=== PATIENT | female | born 1975 | race Caucasian/White ===

== ENCOUNTER → 2018-02-02 13:18 | Outpatient (CLI) | payer BC, SELFPAY ==
--- NOTE | 2018-02-02 13:30 | RAD_ITS ---
STUDY: X-RAY - RIGHT KNEE REASON FOR EXAM: Female, 42 years old. Pain TECHNIQUE: 4 view(s) of the knee. COMPARISON: None. FINDINGS: There is no evidence of fracture or dislocation. There are no significant degenerative changes. There are no radiodense foreign bodies. RAD/Knee 4 or More Views IMPRESSION: Negative radiographs of the right knee Electronically Signed: Guy Riggs, at 20:48 EDT Tel , Service support ,
--- NOTE | 2018-02-02 13:30 | RAD_ITS ---
STUDY: X-RAY - LEFT KNEE REASON FOR EXAM: Female, 42 years old. Pain TECHNIQUE: 4 view(s) of the knee. COMPARISON: None. FINDINGS: There is no evidence of fracture or dislocation. There are no significant degenerative changes. There are no radiodense foreign bodies. RAD/Knee 4 or More Views IMPRESSION: Negative radiographs of the left knee. Electronically Signed: Guy Riggs, at 20:46 EDT Tel , Service support ,
== END ==
PROVIDERS: Family Provider Internal Medicine; PCP Internal Medicine; Visit Provider Physician Assistant
DX: M25.561 Pain in right knee (principal); M25.562 Pain in left knee
CPT/HCPCS: 73564

== ENCOUNTER → 2019-04-22 11:22 | Outpatient (CLI) | payer BC, SELFPAY ==
--- NOTE | 2019-04-22 11:25 | RAD_ITS ---
STUDY: X-RAY - CERVICAL SPINE REASON FOR EXAM: Female, 43 years old. Pain TECHNIQUE: 4 view(s) of the cervical spine were obtained. COMPARISON: None FINDINGS: Normal anterior atlantoaxial articulation. Normal odontoid process. Normal cervical lordosis. There is endplate spondylosis of C6 and C7. There is moderately severe narrowing of the C6-7 disc space. The soft tissue structures are unremarkable. RAD/Cerv Spine 2 or 3 Views IMPRESSION: Moderately severe narrowing of the C6-7 disc space. Endplate spondylosis of C6 and C7. There is no evidence of fracture or subluxation. Electronically Signed: Patrice Hickey MD at 17:44 EDT , Service support ,
== END ==
PROVIDERS: Family Provider Internal Medicine; PCP Internal Medicine; Referring Provider Internal Medicine; Visit Provider Internal Medicine
DX: M54.12 Radiculopathy, cervical region (principal)
CPT/HCPCS: 72040

== ENCOUNTER 2019-04-29 08:15 | Outpatient (RCR) | payer BC, SELFPAY ==
--- NOTE | 2019-04-29 11:40 | HP.PTEVAL_ITS ---
Patient's Visit Information EDWAR VALDIVIA is a 43 year old F referred to Physical Therapy by Barbie Ramos DO with a diagnosis of CERVICAL NECK PAIN,RADICULOPATHY,CERVICAL MUSCLE SPASMS. Date of Evaluation: 04/29/19 Physical Therapist: Salvatore Whitaker, PT, Cert MDT, OCS - Visit Plan Frequency: 1-2x /Week Duration: 4 Weeks Plan: PT INTERVENTIONS MANUAL THERAPY CERVICAL TRACTION /STM,US/CM/MHP,CERVICAL /POSTURL EX'S - Subjective Findings: This 43 y/o female presents to physical therapy with cervical pain . Patient has cervical pain for 9 years. Patient right cervical spine region. Aggravating factors flexion ,looking up and rotation/STM . Alleviating factors ice/aleve. Paient has seen chiropractors . Denies parathesai/tingling.C/O KIRBY . Symptoms worse in morning.Denies nausea/tinnutus. pateint had x-rays DDD C5-6. Patient pain affects job demands ADLS'. Patient goals to manage flare ups.Symptoms are intermittant. SOCIAL: 2. Children. VOCATION: nurse pedtric. - Pain Right Neck Pain Intensity (Out of 10): 2 Pain Intensity Range: 10 - Objective POSTURE: rounded shoulders. NEURO: denies parathesia/tingling ,reflexes C5-6-7 2/3. PALAPTION: unremrkable. AROM: flexion WFL. CERVICAL ROM: flexion min loss,extension min/mod loss pain,lateral flexion mod loss to right with pain,left min/mod loss,rotation min loss,retraction min loss. MMT: COLE 4/5 - Special Tests C/S Radiculapathy - Left Upper limb tension test: Negative C/S Radiculapathy - Right Upper limb tension test: Negative C/S Radiculapathy - Left Spurlings: Negative C/S Radiculapathy - Right Spurlings: Positive C/S Radiculapathy - Left Cervical distraction: Negative C/S Radiculapathy - Right Cervical distraction: Negative Sharp Steven: Negative Vertebral Artery Test: Negative Alar Ligament Test: Negative Cervical Sitting: Protrusion - Mechanical Response: No effect Cervical Sitting: Protrusion - Symptoms During Testing: Increases Cervical Sitting: Protrusion - Symptoms After Testing: No worse Cervical Sitting: Retraction - Mechanical Response: No effect Cervical Sitting: Retraction - Symptoms During Testing: No effect Cervical Sitting: Retraction - Symptoms After Testing: No worse Cervical Sitting: Retraction-Extension - Mechanical Response: No effect Cerv Sitting: Retraction-Extension - Symptoms During Testing: Increases Cerv Sitting: Retraction-Extension - Symptoms After Testing: No worse Cervical Sitting: Sidebend Right - Mechanical Response: No effect Cervical Sitting: Sidebend Right - Symptoms During Testing: Increases Cervical Sitting: Sidebend Right - Symptoms After Testing: No worse Cervical Sitting: Sidebend Left - Mechanical Response: No effect Cervical Sitting: Sidebend Left - Symptoms During Testing: No effect Cervical Sitting: Sidebend Left - Symptoms After Testing: No effect Cervical Sitting: Rotation Right - Mechanical Response: No effect Cervical Sitting: Rotation Right - Symptoms During Testing: Increases Cervical Sitting: Rotation Right - Symptoms After Testing: No worse Cervical Sitting: Rotation Left - Mechanical Response: No effect Cervical Sitting: Rotation Left - Symptoms During Testing: No effect Cervical Sitting: Rotation Left - Symptoms After Testing: No effect Cervical Sitting: Flexion - Mechanical Response: No effect Cervical Sitting: Flexion - Symptoms During Testing: Increases Cervical Sitting: Flexion - Symptoms After Testing: No worse - Goals Goal 1:: Independant with hEP Goal Time Frame: 2-4 Weeks Goal 2:: Patient improve cervical ROM for function of recovery. Goal Time Frame: 2-4 Weeks Goal 3:: Patient to decrease cervical pain by 60% or > to improve function. Goal Time Frame: 2-4 Weeks Goal 4:: Patient to improve neck owestry score by 5 points or> to improve QOL. Goal Time Frame: 2-4 Weeks - Rehabilitation Potential Physical Therapy Diagnosis: This patient has right cervical pain causes pain with extension /lateral flexion with decrease ROM impairs function with x-rays showeing mod/severe DDD C6-7 along with possible derrangement. Rehabilitation Potential: Good - Anticipated Interventions Patient/Client Instruction: Educate patient on: Condition, Plan of Care For the Purpose of:: To decrease pain, To increase ROM, To improve muscle performance and motor function, To improve ability to perform ADL's, To increase tolerance to activity/condition/position, To improve ability of physical actions for home/community/work/leisure, To improve health of tissue, To decrease soft tissue restriction, To increase flexibility/ROM, To improve ability to perform tasks related to life management Therapeutic Exercise to Include: Strength training, Postural training, Flexibilty training, Active ROM For the Purpose of:: To decrease pain, To increase ROM, To increase tolerance to activity/condition/position, To improve performance and independence with ADL's, To improve ability of physical actions for home/community/work/leisure, To improve health of tissue, To decrease soft tissue restriction, To increase flexibility/ROM Manual Therapy Techniques to Include: Mobilization Comment: CERVICAL For the Purpose of:: To decrease pain, To increase ROM, To improve health of tissue, To decrease soft tissue restriction, To improve ability to perform tasks related to life management TENS: Yes IF ES: Yes Cryotherapy (ice pack, ice massage): Yes Thermo therapy (hot pack): Yes Ultrasound (thermal/non thermal): Yes For the Purpose of:: To decrease pain, To increase ROM, To improve nutrient delivery to tissue, To increase oxygenation perfusion, To improve health of tissue, To decrease soft tissue restriction Thank you for the opportunity to evaluate your patient. For Medicare and Medicare HMO plans, please review the plan of care and approve it. It will need to be FAXED BACK to us at [phone] for Medicare purposes. For Medicare only, by signing this I certify the plan of care. Please let me know if there are questions or concerns regarding this plan of care. Physician Signature: __Date:
--- NOTE | 2019-08-12 13:04 | HP.PTDCNRP_ITS ---
HP - Discharge Summary (1) - Patient Information EDWAR VALDIVIA was seen in my office for initial evaluation on 04/29/19. The following Plan of Care was established for this patient: Initial Frequency: 1-2x /Week Initial Duration: 4 Weeks - Anticipated Interventions Patient/Client Instruction: Educate patient on: Condition, Plan of Care For the Purpose of:: To decrease pain, To increase ROM, To improve muscle p erformance and motor function, To improve ability to perform ADL's, To increase tolerance to activity/condition/position, To improve ability of physical actions for home/community/work/leisure, To improve health of tissue, To decrease soft tissue restriction, To increase flexibility/ROM, To improve ability to perform tasks related to life management Therapeutic Exercise to Include: Strength training, Postural training, Flexibilty training, Active ROM For the Purpose of:: To decrease pain, To increase ROM, To increase tolerance to activity/condition/position, To improve performance and independence with ADL's, To improve ability of physical actions for home/community/work/leisure, To improve health of tissue, To decrease soft tissue restriction, To increase flexibility/ROM Manual Therapy Techniques to Include: Mobilization Comment: CERVICAL For the Purpose of:: To decrease pain, To increase ROM, To improve health of tissue, To decrease soft tissue restriction, To improve ability to perform tasks related to life management TENS: Yes IF ES: Yes Cryotherapy (ice pack, ice massage): Yes Thermo therapy (hot pack): Yes Ultrasound (thermal/non thermal): Yes For the Purpose of:: To decrease pain, To increase ROM, To improve nutrient delivery to tissue, To increase oxygenation perfusion, To improve health of tissue, To decrease soft tissue restriction This patient was last seen in our office . Pertinent comments regarding their Physical therapy will appear below: Patient seen for PT intial Evaluation for cervical pain for HEP. At this point I will be discontinuing this patient from physical therapy. I would be happy to see this patient again in the future if found appropriate by the physician. Thank you! Salvatore Whitaker, PT, Cert MDT, OCS
== END 2019-04-29 19:00 | disposition home or self-care (01) ==
LOC: PT 08:15
PROVIDERS: Family Provider Internal Medicine; PCP Internal Medicine; Referring Provider Internal Medicine; Visit Provider Internal Medicine
DX: M54.2 Cervicalgia (principal); M54.12 Radiculopathy, cervical region; M62.838 Other muscle spasm
CPT/HCPCS: 97110; 97140; 97162

== ENCOUNTER 2020-08-23 06:01 | Day surgery (SDC) | payer BC, SELFPAY ==
--- NOTE | 2020-08-08 11:10 | HP.PCM_ITS ---
- Problem List (1) Menorrhagia Status: Acute (2) DUB (dysfunctional uterine bleeding) Status: Acute (3) Uterine polyp Status: Acute History and Physical Date of Admission: 08/23/20 DATE OF SERVICE: August 08, 2020 ? PROBLEM:?menorrhagia, DUB ? DIAGNOSIS:?menorrhagia, DUB ? PAST SURGICAL HISTORY:? PAST SURGICAL HISTORY PAST SURGICAL HISTORY Procedure Laterality Date ? CERVIX UTERI CAUTER CRYOCAUTER ? 1998 ? D&C AFTER DELIVERY ? 06/07/07 ? D&C for retained placental tissue PPD#2 ? D&C, DIAG AND/OR THERAPEUTIC ? 11/2004,11/2005 ? Dilation & curettage ? INSERTION OF IUD ? 07/23/2009 ? Mirena ? IUD REMOVAL ? 07/12/13 ? Mirena ? REMOVAL OF TONSILS,<12 Y/O ? 1983 ? Tonsillectomy ? PAST MEDICAL HISTORY:? PAST MEDICAL HISTORY PAST MEDICAL HISTORY Diagnosis Date ? Abnormal glandular Papanicolaou smear of cervix 1997 ? Abn. Pap smear (cervix) ? PMH - PAST MEDICAL HISTORY OF ? ? MTHFR MUTATION ? 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 SUBJECTIVE:?Had bleeding straight for 7 weeks. Now?having intermenstrual spotting. Had Mirena IUD in past and she reports she did well with it.? ? SOCIAL HISTORY:? SOCIAL HISTORY Social History ? Tobacco Use ? Smoking status: Never Smoker ? Smokeless tobacco: Never Used Substance Use Topics ? Alcohol use: Yes ? Drug use: No ? PASTE UP COPY CAMERA OPERATOR HISTORY: ? Pelvic US: Indication Abnormal uterine bleeding Impression Normal appearing anteverted uterus that measures 97 mm x 45 mm x 58 mm. The central endometrial complex measures 13.6 mm in combined thickness. 2 endometrial polyps appreciated- measuring 1.2 and 1.5 cm in greatest dimension. Both ovaries are visualized and appear normal. No adnexal masses were observed. There is no free fluid visualized in the peritoneal cavity. Recommendations Consider hysteroscopic evaluation and management of intracavitary lesion if clinically indicated. ? ALLERGIES ALLERGIES No Known Allergies ? Current Outpatient Medications on File Prior to Visit Medication Sig ? MULTIVITAMIN ORAL Take by mouth. ? LACTOBACILLUS COMBO NO.6 (PROBIOTIC COMPLEX ORAL) Take 1 tablet by mouth once daily. No current facility-administered medications on file prior to visit. ? OBJECTIVE: ? VITALS:? BP 100/64 ? Pulse 63 ? Resp 12 ? Ht 5' 8 (1.727 m) ? Wt 131 lb 1.6 oz (59.5 kg) ? LMP 06/21/2020 ? BMI 19.93 kg/m? ? HEENT: ?Normocephalic, atraumatic, Mucus membranes moist without lesions. ? NECK: ???Soft and Supple. ?No adenopathy , thyromegaly or bruits. ? SKIN: No lesions. ? CHEST: Clear to auscultation. ?No wheezes or rales. ?Good air exchange. ? HEART: Regular rate and rhythm ?No S3 or S4. ?No gallops or rubs. ? BACK: Nontender with no CVA tenderness. ? ABDOMEN: Soft, non-tender, non-distended, no masses, no hepatosplenomegaly. ? LOWER EXTREMITIES: There was no pitting edema, no palpable cords and no skin changes. ? ASSESSMENT:?menorrhagia, DUB ? PLAN:?Discussed hysteroscopy, polypectomy, D&C, Mirena IUD placement. Reviewed pelvic US results. Discussed there may not be a polyp present at time of surgery. Reviewed r/b/a and possible side effects of IUD. Handout given on IUD for her to review.?The rationale for the proposed surgery was discussed in addition to risks, benefits, and alternatives. ?General pre- and post-operative care was reviewed. ?Questions were answered. ?After discussion, the patient indicated a desire to proceed with the planned surgery. ? Mojgan Gonzalez,?DO
[2020-08-22 10:28] LABS: Hematocrit 40.4 % (37-47); Hemoglobin 12.9 g/dL (12.0-15.0); Mean Corp Hgb Conc 31.9 g/dL (32-36); Mean Corpuscular Hgb 31.9 pg (27.0-32.0); Mean Platelet Vol. 9.7 fl (6.2-12.0); Platelet Count 302 K/mm3 (150-450); RBC Distribution Width CV 12.2 % (11.6-14.6); RBC Distribution Width SD 45.3 fl (35.1-43.9); Red Blood Count 4.04 M/mm3 (4.2-5.4); White Blood Count 5.8 K/mm3 (4.4-11.0)
[2020-08-23] VITALS (7 sets, daily range): BP systolic 91–120; BP diastolic 69–78; PULSE 50–69; RESP 16–18; TEMP 36.3–36.5; O2SAT 96–100
[2020-08-23 06:32] LABS: Absolute Lymphocyte Count 3.61 X10^3/uL (0.83-4.51); Absolute Neutrophil Count 3.4 X10^3/uL (2.0-7.7); Basophil# 0.04 X10^3/uL; Basophil% 0.5 % (0-1); Eosinophil# 0.13 X10^3/uL; Eosinophils% 1.6 % (0-5); Hematocrit 40.3 % (37-47); Hemoglobin 12.9 g/dL (12.0-15.0); Lymphocyte # 3.61 X10^3/ul (4.0); Lymphocyte % 45.4 % (19-41); Mean Corpuscular Hgb 31.8 pg (27.0-32.0); Mean Corpuscular Volume 99.3 fL (81-99); Mean Platelet Vol. 8.9 fl (6.2-12.0); Monocyte% 10.1 % (0-10); NRBC Flagged by Analyzer 0 % (0-5); Neutrophil # 3.37 X10^3/uL (2.7-7.7); Neutrophil % 42.3 % (47-70); Platelet Count 284 K/mm3 (150-450); RBC Distribution Width CV 12.1 % (11.6-14.6); RBC Distribution Width SD 44.4 fl (35.1-43.9); Red Blood Count 4.06 M/mm3 (4.2-5.4)
[2020-08-23 06:36] LABS: Internal QC Validated? YES +Cl - CLEAR BKGD; Pregnancy, Urine Negative Negative
[2020-08-23] MEDS: Lactated Ringers 1,000 ML 100 ML IV (06:42)
--- NOTE | 2020-08-23 07:30 | EMB_PTH ---
PATIENT: EDWAR VALDIVIA [place] [facility] [id number] AGE/SX: 44/F ROOM: RE08/23/[address]: Dr. Mojgan Gonzalez DO : 1975 BED: DIS: 08/23/2020 SPEC #: [id number] RECD: 08/23/20 10:56 STATUS: SUKHJINDER REMadie #: [id number] GABRIELLA: 08/23/20 07:[address]: Mojgan Gonzalez DEPT: SURGICAL PATHOLOGY RECD BY: Gloria Santiago ENTERED: 08/23/20 13:03 SP TYPE: ENDOM BX/C DANIEL DR: Dr. Barbie Ramos DO Tissues: Endometrium, NOS Procedures: Surgery Specimen Level IV HEADER OPERATION: Hysteroscopy, D & C Symphion, polypectomy, Mirena IUD PRE-OP DIAGNOSIS: Menorrhagia, dysfunctional uterine bleeding TISSUE SUBMITTED: Endometrial curettings and polyp MICROSCOPIC DIAGNOSIS Endometrial curettings and polyp: Polypoid fragments of proliferative endometrium with mild disorder. Rare fragments of benign squamous mucosa. Mild chronic endometritis. AM:kodak 08/24/2020 MICROSCOPIC DESCRIPTION Slides are reviewed. GROSS DESCRIPTION Received in fixative is one container labeled with the patient's name and designated endometrial curettings and polyp. The specimen consists of multiple irregular fragments of light gaffney soft tissue that in aggregate measure 3.5 x 2.5 x 1 cm. The specimen is totally submitted in one cassette. / AM:kodak 08/23/20 TC:3 CPT: 25927
[2020-08-23] MEDS: Lidocaine 1% (20 ml mdv) 20 ML Vial (08:20)
--- NOTE | 2020-08-23 08:36 | DCINST_ITS ---
Discharge Diet: No Restrictions Discharge Activity: May Drive - 24 hours after surgery May resume sexual activity in: 1 week Weight Bearing Status: Full weight bearing Lifting Restrictions: No restrictions Call your doctor if you observe: Fever of 101 or Higher, Inability to urinate, Inability to have a bowel movement, Using more than one pad per hour, Shortness of breath, Dizziness, Fainting spells, Swelling in the ankles, Chest pain, Increased palpitations (irregular heartbeat), Calf discomfort, Uncontrolled pain Allergies/Adverse Reactions: Allergies No Known Allergies Allergy (Verified 08/23/20 06:36) Medications to take at Discharge L.acidoph,Paracasei, B.lactis [Probiotic] 1 ea PO DAILY 08/16/20 Multivitamin with Minerals [Multiple Vitamin] 1 ea PO DAILY 08/16/20 Primary Care Physician: Barbie Ramos DO [Primary Care Provider] - Test Results: Test results from this visit will be discussed in further detail at your follow- up appointment, if applicable. Please Follow Up With: Mojgan Gonzalez DO When: 1-2 weeks
--- NOTE | 2020-08-23 08:37 | PCM.OPRPT ---
Problem List (1) Menorrhagia Status: Acute (2) DUB (dysfunctional uterine bleeding) Status: Acute (3) Uterine polyp Status: Acute Report of Operation Date of Procedure: 08/23/20 Pre-Operative Diagnosis: Menorrhagia, DUB, uterine polyp Post-Operative Diagnosis: As above Surgery/Procedure Performed:: Hysteroscopy, polypectomy, dilation and curettage, Mirena IUD placement Description of Surgical Findings:: One uterine polyp noted at the fundus of the uterus. Otherwise the uterine cavity was normal-appearing. Bilateral tubal ostia visualized. Thin appearing endometrium. Good descent of uterus and cervix. Type of Anesthesia:: Local, MAC Special Medications: None Specimen's removed: Polyp and endometrial curettings Drains: None Estimated Blood Loss (mL): < 50 cc Fluids Replaced: 300 cc fluid deficit Description of Procedure: Patient was taken to the operating room where MAC anesthesia was found to be adequate. She was prepped and draped in the dorsal lithotomy position in yellowfin stirrups. A weighted speculum was placed in the vagina to expose the cervix. A single-tooth tenaculum was placed on the anterior lip of cervix. Local was injected for a paracervical block. The cervix was serially dilated to accommodate the Symphion hysteroscope. The Symphion hysteroscope was advanced to the fundus of the uterus and normal saline was used as distention media. One uterine polyp was noted. Using the resecting device on the Symphion hysteroscope the polyp was resected. Once the polyp was resected the remaining uterine cavity was normal-appearing. Bilateral tubal ostia were visualized. The endometrium was thin appearing. Pictures were taken. The hysteroscope was slowly removed through the cervical canal, and the cervical canal was noted normal-appearing. The hysteroscope was then removed. A sharp curettage was performed for scant amount of endometrial tissue. Endometrial curettings and polyp were sent to pathology for review. The uterus sounded to 7 cm in length. The Mirena IUD device was set and placed in the uterus in the usual fashion. The IUD strings were trimmed to 2 cm in length. All instruments were removed from the vagina. Bleeding was hemostatic. A vaginal sweep was performed. Sponge counts were correct. The patient was taken to recovery in stable condition. Grafts/Implants Used: Mirena IUD - Complications None - Admit VTE Documentation VTE Present on Admission: No VTE Mechan Device Prophylaxis: SCD's VTE Pharm Prophylaxis ordered?: No
== END 2020-08-23 09:54 | disposition home or self-care (01) ==
LOC: SDC 06:02 → AC 06:02
PROVIDERS: PCP Internal Medicine; Referring Provider Obstetrics & Gynecology; Visit Provider Obstetrics & Gynecology
PROC: 0UB98ZZ Excision of Uterus, Via Natural or Artificial Opening Endoscopic (ICD-10-PCS; CPT 58558; principal; 2020-08-23 07:15)
DX: N84.0 Polyp of corpus uteri (principal); N71.1 Chronic inflammatory disease of uterus; N92.0 Excessive and frequent menstruation with regular cycle; N93.8 Other specified abnormal uterine and vaginal bleeding
CPT/HCPCS: 00952; 58300; 58558; 36415; 81025; 85025; 85027; 86850; 86900; 86901; 87426; 88305; C9803; J7120; J2405

== ENCOUNTER → 2023-04-03 | Outpatient (CLI) | payer BC, SELFPAY ==
[2023-04-03 10:03] LABS: Absolute Lymphocyte Count 2.37 X10^3/uL (0.83-4.51); Basophil# 0.03 X10^3/uL; Basophil% 0.3 % (0-1); Eosinophil# 0.13 X10^3/uL; Eosinophils% 1.4 % (0-5); Hematocrit 40.8 % (37-47); Hemoglobin 13.2 g/dL (12.0-15.0); Lymphocyte # 2.37 X10^3/ul (0.83-4.51); Lymphocyte % 25.7 % (19-41); Mean Corp Hgb Conc 32.4 g/dL (32-36); Mean Corpuscular Hgb 32.5 pg (27.0-32.0); Mean Corpuscular Volume 100.5 fL (81-99); Mean Platelet Vol. 9.6 fl (6.2-12.0); Monocyte# 0.67 X10^3/uL; Monocyte% 7.3 % (0-10); NRBC Flagged by Analyzer 0 % (0-5); Neutrophil # 5.99 X10^3/uL (2.7-7.7); Platelet Count 277 K/mm3 (150-450); RBC Distribution Width SD 48.1 fl (35.1-43.9); Red Blood Count 4.06 M/mm3 (4.2-5.4); White Blood Count 9.2 K/mm3 (4.4-11.0)
[2023-04-03 10:34] LABS: ALB/GLOB Ratio 1.1 RATIO (0.9-2.4); AST(SGOT) 16 U/L (15-37); Alanine Aminotransfer ALT/SGPT 18 U/L (13-56); Albumin, Serum 3.9 g/dL (3.2-5.0); Alkaline Phosphatase 67 U/L (45-117); Anion Gap 5 (5-15); BUN 18 mg/dL (7-18); BUN/Creat Ratio 21.9 RATIO (10-20); Chloride 107 mmol/L (98-107); Cholesterol 177 mg/dL (200); Creatinine, Serum 0.82 mg/dL (0.55-1.02); EST Glomerular Filtration Rate 79 mL/min (>60); Est Glom Filt Rate - Afr Amer 96 mL/min (>60); Globulin 3.5 g/dL (2.2-4.2); Glucose 100 mg/dL (74-106); High Density Lipoprotein 78 mg/dL; Protein, Total 7.4 g/dL (6.4-8.2); Sodium Level 139 mmol/L (136-145); Triglycerides 91 mg/dL; Very Low Density Lipoprotein 18 mg/dL (5-40)
[2023-04-03 11:09] LABS: Hemoglobin A1c 5.2 % (3.8-5.6)
== END | disposition home or self-care (01) ==
PROVIDERS: PCP Family Medicine; Referring Provider Family Medicine; Visit Provider Family Medicine
DX: Z00.00 Encounter for general adult medical examination without abnormal findings (principal); Z13.220 Encounter for screening for lipoid disorders; Z13.29 Encounter for screening for other suspected endocrine disorder; Z13.0 Encounter for screening for diseases of the blood and blood-forming organs and certain disorders involving the immune mechanism; Z13.1 Encounter for screening for diabetes mellitus
CPT/HCPCS: 36415; 80053; 80061; 83036; 84443; 85025